=== PATIENT | female | born 1980 | race Caucasian/White ===

== ENCOUNTER 2019-05-29 20:00 | Inpatient (IN) | payer OTHER ==
[2019-05-29 21:51] LABS: BASO % 0.5 % (0-2.0); EOS % 0.9 % (0-4.5); HEMATOCRIT 34.4 % (32.4-45.2); HEMOGLOBIN 11.2 GM/dL (10.7-15.3); LYMPH % 24.6 % (8-40); MCH 29.4 pg (25.7-33.7); MCHC 32.5 g/dl (32.0-36.0); MEAN CELL VOLUME 90.4 fl (80-96); MONO % 8.9 % (3.8-10.2); NEUT % 65.1 % (42.8-82.8); PLATELET COUNT 170 K/MM3 (134-434); RBC 3.81 M/mm3 (3.60-5.2); RDW 13.1 % (11.6-15.6); WHITE BLOOD COUNT 7.7 K/mm3 (4.0-10.0)
--- NOTE | 2019-05-29 21:53 | HP ---
Past Medical History - Primary Care Physician PCP:: Julio Strange - Admission Chief Complaint: 38yo P0 female with at EGA 40w2d admitted for labor indx. 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: Alzheimer's, CVA, Dementia, Migraine, Multiple Sclerosis, Peripheral Neuropathy, Parkinson's, Seizure, Syncope, TIA, Vertigo, Other Cardiovascular: No: AFIB, Aneurysm, Aortic Insufficiency, Aortic Stenosis, CAD, CHF, Deep Vein Thrombosis, HTN, Hyperlipdemia, ME, Mitral Insufficiency, Mitral Stenosis, Murmur, Pulmonary Hypertension, Other Pulmonary: No: Asthma, Bronchitis, Cancer, COPD, O2 Dependent, Pneumonia, Previously Intubated, Pulmonary Embolus, Pulmonary Fibrosis, Sleep Apnea, Other Gastrointestinal: No: Ascites, Cancer, Constipation, Crohn's Disease, Diverticulitis, Diverticulosis, Esophageal Varices, Gastritis, GERD, GI Bleed, Hemorrhoids, Hiatal Hernia, Inflamatory Bowel Disease, Irritable Bowel Disease, Pancreatitis, Peptic Ulcer Disease, Ulcerative Colitis, Other Hepatobiliary: No: Cirrhosis, Cholelithiasis, Cholecystitis, Choledocholithiasis , Hepatitis A, Hepatitis B, Hepatitis C, Other Renal/: No: Renal Failure, Renal Inusuff, BPH, Cancer, Hematuria, Hemodialysis , Neurogenic Bladder, Renal Calculi, UTI, Other Reproductive: Yes: Fibroids (small) ...: 4 ...Para: 0 ...Term: 0 ...: 0 ...Spon : 3 ...Induced : 0 ...Multiple Gestation: 0 ... Weeks Gestation by Dates: 40.2 ...EDC by Sono: 05/27/19 Additional OB History: SAB x 3 Heme/Onc: No: Anemia, B12 Deficiency, Bleeding Disorder, Cancer, Current Chemotherapy, Current Radiation Therapy, Hemochromatosis, Hypercoaguable State, Myeloproliferative Synd, Sickle Cell Disease, Sickle Cell Trait, Thrombocytopenia, Other Infectious Disease: No: AIDS, C-Diff, Herpes Zoster, HIV, MRSA, STD's, Tuberculosis, VREF, Other Psych: No: Addictions, Anxiety, Bipolar, Depression, Panic, Psychosis, Schizophrenia, Other Musculoskeletal: No: Bursitis, Chronic low back pain, Hemiparesis, Hemiplegia, Osteoarthritis, Paraplegia, Other Rheumatology: No: Fibromyalgia, Gout, Lupus, Rheumatoid Arthritis, Sarcoidosis, Vasculitis, Other ENT: No: Allergic Rhinitis, Sinusitis, Other Endocrine: No: Shade's Disease, Webster's Disease, Diabetes Insipidus, Diabetes Mellitus, Hyperparathyroidism, Hyperthyroidism, Hypothyroidism, Osteopenia, SIADH, Other Dermatology: No: Basal Cell, Cellulitis, Eczema, Melanoma, Psoriasis, Squamous Cell, Other - Past Surgical History Past Surgical History: Yes: None Hx Myomectomy: No Hx Transabdominal Cerclage: No Additional Surgical History: D&C 1, breast augmentation - Smoking History Have you smoked in the past 12 months: No - Alcohol/Substance Use Hx Alcohol Use: No History of Substance Use: reports: None - Social History Usual Living Arrangement: Yes: With Spouse ADL: Independent 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 History of Recent Travel: No Home Medications - Allergies Allergies/Adverse Reactions: Allergies Allergy/AdvReac Type Severity Reaction Status Date / Time Penicillins Allergy Intermediate Difficulty Verified 05/29/19 21:29 Breathing aspirin Allergy Mild Hives Verified 05/29/19 21:30 - Home Medications Home Medications: Ambulatory Orders 19 Tablet 1 tab PO DAILY 05/29/19 Family Disease History - Family Disease History Family History: Unremarkable Review of Systems - Review of Systems Constitutional: reports: No Symptoms Eyes: reports: No Symptoms HENT: reports: No Symptoms Neck: reports: No Symptoms Cardiovascular: reports: No Symptoms Respiratory: reports: No Symptoms Gastrointestinal: reports: No Symptoms Genitourinary: reports: No Symptoms Breasts: reports: No Symptoms Reported Musculoskeletal: reports: No Symptoms Integumentary: reports: No Symptoms Neurological: reports: No Symptoms Endocrine: reports: No Symptoms Hematology/Lymphatic: reports: No Symptoms Psychiatric: reports: No Symptoms Pain Intensity: 0 Physical Exam - Maternity Constitutional: Yes: Well Nourished, No Distress, Calm Eyes: Yes: WNL, Conjunctiva Clear HENT: Yes: WNL, Atraumatic, Normocephalic Neck: Yes: WNL, Supple, Trachea Midline Cardiovascular: Yes: WNL, Regular Rate and Rhythm Lungs: Clear to auscultation, Normal air movement Breast(s): Yes: WNL - Abdominal Exam/OB Fundal Height: 40 Number of Fetuses: Single Presentation: Vertex Contractions: No Heart Rate (range): 120 Heart Rate Location: Midline Category: I Accelerations: Uniform Decelerations: None - Vaginal Exam/OB Vaginal Bleediing: No Speculum Exam: No Dilatation (cm): 0 Effacement (%): 0 Amniotic Membrane Status: Intact Presentation: Vertex/Position Station: -4 (Gynecoid pelvimetry, EFW ~3300 gm by Leoplold maneuvers.) - Physical Exam Musculoskeletal: Yes: WNL Extremities: Yes: WNL Edema: No Integumentary: Yes: WNL Deep Tendon Reflex Grade: Normal +2 ...Motor Strength: WNL Psychiatric: Yes: WNL, Alert, Oriented Hemorrhage Risk Assessment - Risk Factors Medium Risk Factors: Yes: None High Risk Factors: Yes: None Risk Score: 1 Risk Level: Medium Risk Imaging - Results Ultrasound: Report Reviewed Assessment/Plan 38yo P0 with at EGA 40w2d admitted for labor induction. Pt is not in labor. Fetus with Category I tracing. Adequate gynecoid pelvimetry on exam. We had long discussion re: risks, benefits, and alternatives of labor induction. I explained the options of expectant management awaiting spontaneous labor, induction of labor, and elective section. The risks of uterine tachysystole, distress, uterine rupture, need for emergency C/S, hemorrhage, infection, scarring, etc. were discussed. We also discussed the risks of meconium aspiration, shoulder dystocia, and anesthesia options. The pt requested to proceed with induction. We discussed the alternative methods of induction with Cervidil, Cytotec, Folley ballon, and pitocin. The pt prefers Cervidil followed by pitocin, if needed.
[2019-05-29 21:57] LABS: INR 0.9 (0.83-1.09); PROTHROMBIN TIME (PATIENT) 10.6 SEC (9.7-13.0)
[2019-05-29 22:00] LABS: ACTIVATED PTT 25.2 SECONDS (25.2-36.5)
[2019-05-29] MEDS ORDERED: DINOPROSTONE 10 MG VAGINAL SUPPOSITORY VG ONE (22:06)
[2019-05-29 22:10] LABS: BLOOD UREA NITROGEN 12.6 mg/dL (7-18); CREATININE 0.9 mg/dL (0.55-1.3); POTASSIUM 4.2 mmol/L (3.5-5.1); URIC ACID 5.7 mg/dL (2.6-7.2)
[2019-05-29 22:14] LABS: RETICULOCYTES 1.69 % (0.5-1.5)
[2019-05-29] MEDS: DEXTROSE 5%-LACTATED RINGERS 1,000 ML IV SCH (23:00)
[2019-05-30] MEDS: CLINDAMYCIN 900 MG PREMIX IVPB 900 MG/50 ML BAG IVPB SCH ×2 (01:00→09:30)
[2019-05-30] MEDS ORDERED: CLINDAMYCIN PHOSPHATE 600 MG/4 ML VIAL ONE ×2 (01:15)
[2019-05-30] MEDS ORDERED: BUTORPHANOL TARTRATE 1 MG/ML VIAL ONE ×2 (03:23)
[2019-05-30] MEDS ORDERED: PROMETHAZINE HCL 25 MG/1 ML VIAL ONE (03:24)
[2019-05-30] MEDS: DEXTROSE 5%-LACTATED RINGERS 1,000 ML IV SCH (05:47)
--- NOTE | 2019-05-30 08:26 | PN ---
Ante-Partal Exam - Subjective Subjective: Pt is comfortable now. The contractions had spread out. Vital Signs: Vital Signs Temperature 97.6 F 05/30/19 06:00 Pulse Rate 70 05/30/19 06:00 Respiratory Rate 18 05/30/19 06:00 Blood Pressure 125/75 05/30/19 06:00 O2 Sat by Pulse Oximetry (%) Bleeding: No Headache: No Visual changes: No Right upper quadrant pain: No Pain (scale 1-10): 2 - Contractions Contractions: Yes Regularity: Irregular Intensity: Mild Monitor Mode: External - Exam during Labor Heart Rate: 120 Variability: Moderate Heart Rate Location: Midline Category: I Monitor Accelerations: Absent Monitor Decelerations: None Exam: Vaginal Dilatation (cm): 0 Effacement (%): 50 Amniotic Membrane Status: Intact Station: -3 - Intrapartum Hemorrhage Risk Medium Risk Factors: None High Risk Factors: None Risk Score: 0 Risk Level: Low Risk - Assessment/Plan Assessment/Plan: 38yo P0 with IVF at 40w3d undergoing labor indx. Pt is s/p Cervidil and is not in labor. Pt requested to eat and shower. Fetus with category I tracing and does not require intervention. Plan to start pitocin when she is ready.
[2019-05-30] MEDS ORDERED: PROMETHAZINE HCL 25 MG/1 ML VIAL IVPB ONE (08:43)
[2019-05-30] MEDS ORDERED: BUTORPHANOL TARTRATE 1 MG/ML VIAL IVPB ONE (08:43)
[2019-05-30] MEDS ORDERED: OXYTOCIN 30 UNITS in 0.9% NS 30 UNIT/500 ML INFUS.BAG IVPB SCH (08:45)
[2019-05-30] MEDS ORDERED: OXYTOCIN 30 UNITS in 0.9% NS 30 UNIT/500 ML INFUS.BAG IVPB ONE (09:16)
[2019-05-30] MEDS ORDERED: CITRIC ACID/SODIUM CITRATE 30 ML UNIT-DOSE CUP PO ONE (09:54)
[2019-05-30] MEDS ORDERED: ELECTROLYTE-148 SOLN 1,000 ML IV SCH (10:00)
[2019-05-30] MEDS ORDERED: OXYTOCIN 20 UNITS in 0.9% NS 40 UNIT/2,000 ML INFUS.BAG IV ONE (10:32)
[2019-05-30] MEDS ORDERED: morphine SULFATE/PF 0.5 MG/ML (2cc Syringe - QUVA) ONE (11:12)
[2019-05-30] MEDS ORDERED: PHENYLEPHRINE HCL 10 MG/1 ML SINGLE DOSE VIAL ONE (11:13)
--- NOTE | 2019-05-30 11:14 | PN ---
Progress Note (short form) - Note Progress Note: cx closed 50 vx -3, dimpling of cx noted , patient has declined pitocin induction , requesting to have c/s, risks discussed, fully aware of all risks
[2019-05-30] MEDS ORDERED: SUCCINYLCHOLINE CHLORIDE 200 MG/10 ML SYRINGE ONE (11:18)
[2019-05-30] MEDS ORDERED: PROPOFOL 20 ML ONE (11:18)
[2019-05-30] MEDS ORDERED: ePHEDrine SULFATE 50 MG/1 ML AMPULE ONE (11:46)
[2019-05-30] MEDS ORDERED: OXYTOCIN 10 UNITS/ML VIAL ONE (11:52)
[2019-05-30] MEDS ORDERED: KETOROLAC TROMETHAMINE 30 MG/1 ML VIAL ONE ×2 (11:58→12:27)
[2019-05-30] MEDS ORDERED: diphenhydrAMINE HCL 25 MG CAPSULE (FP) PO PRN (12:40)
[2019-05-30] MEDS ORDERED: WITCH HAZEL 50% (TUCKS) 40 PAD/JAR PAD TP PRN (12:40)
[2019-05-30] MEDS ORDERED: oxyCODONE HCL 5 MG TABLET PO PRN (12:40)
[2019-05-30] MEDS ORDERED: BENZOCAINE 20% 57 GM BOTTLE TP PRN (12:40)
[2019-05-30] MEDS ORDERED: BENZOCAINE 28 GM HEMORRHOIDAL OINTMENT PR PRN (12:40)
[2019-05-30] MEDS ORDERED: METHYLERGONOVINE MALEATE 0.2 MG/1 ML AMP IM PRN (12:40)
[2019-05-30] MEDS ORDERED: DEXTROSE 5%-LACTATED RINGERS 1,000 ML IV SCH (12:45)
[2019-05-30] MEDS ORDERED: OXYTOCIN 20 UNITS in 0.9% NS 20 UNIT/1,000 ML INFUS.BAG IV SCH (12:45)
--- NOTE | 2019-05-30 12:45 | OP ---
Operative Note - Note: Operative Date: 05/30/19 Pre-Operative Diagnosis: 40.3 weeks, failed induction Operation: primary LST c/s Findings: live baby boy 06/05 Surgeon: Darian Wadsworth Lending Activities Supervisor: Galileo Dumont Anesthesiologist/BYPRODUCT ENGINEER: Mini Molina Anesthesia: Spinal Specimens Removed: placenta Estimated Blood Loss (mls): 500 Operative Report Dictated: Yes
[2019-05-30] MEDS ORDERED: IBUPROFEN 600 MG TABLET (FP) PO PRN (12:53)
[2019-05-30] MEDS ORDERED: ONDANSETRON 4 MG/2 ML VIAL IVPUSH PRN (12:53)
--- NOTE | 2019-05-30 13:23 | PN ---
Progress Note (short form) - Note Progress Note: I asisted Dr. Wadsworth with primary c/section through out its entirety.
--- NOTE | 2019-05-30 13:27 | OP ---
DATE OF OPERATION: 05/30/2019 PREOPERATIVE DIAGNOSES: , post date, failed induction, advanced maternal age, in vitro fertilization . POSTOPERATIVE DIAGNOSES: , post date, failed induction, advanced maternal age, in vitro fertilization . PROCEDURE: Primary low-segment transverse section. SURGEON: Darian Wadsworth MD CERTIFIED MASSAGE THERAPIST: Galileo Dumont MD ANESTHESIA: Spinal. ANESTHESIOLOGIST: Mini Molina MD ESTIMATED BLOOD LOSS: 500 mL. FINDINGS: A live baby boy, Apgars 9 and 9, LOT position and cord around the neck and arm. OPERATION: Patient was taken to operating room. Adequate spinal anesthesia. Abdomen and perineum was prepped and draped. Pfannenstiel abdominal skin incision was made. Incision extended to the subcutaneous fat and fascia. Fascia was incised transversely and then fascia was from rectus muscle. Peritoneum was grasped with 2 Ginette clamps and entered. Lower uterine segment was identified and uterovesical fold of peritoneum established. Bladder was pushed down. A low transverse uterine incision was made, incision extended laterally with bandage scissors. Head delivered from LOT position, nasopharynx was suctioned. There was a cord around the neck x1, reduced, cord around the arm also. Anterior and posterior shoulder delivered without any difficulty. Then live baby boy was delivered. Placenta was delivered manually. Uterine cavity was cleaned of all remaining tissue. Uterine incision was closed in 2 layers, 1st layer with 0 Biosyn continuous suture, the 2nd layer with 0 Biosyn imbricating the 1st layer. Bladder flap was closed with 0 Biosyn continuous suture. Both tubes and ovaries were checked, were normal, no active bleeding was seen. All the lap pad, sponge count, and instrument count were correct. Then peritoneum was closed with 0 Biosyn continuous suture. Muscles were brought together with interrupted suture of 0 Biosyn. Fascia was closed with 0 Biosyn continuous suture, subcutaneous fat with interrupted suture of 0 Biosyn, and the skin was closed with 3-0 Vicryl subcuticular continuous suture. Patient tolerated procedure well, left the OR in good condition. Pat [id number]
[2019-05-30] MEDS: IBUPROFEN 800 MG/8 ML IJ IVPB PRN ×2 (14:35→20:35)
[2019-05-30] MEDS: CLINDAMYCIN 600MG PREMIX IVPB 600 MG/50 ML BAG IVPB SCH (17:26)
[2019-05-31] MEDS: CLINDAMYCIN 600MG PREMIX IVPB 600 MG/50 ML BAG IVPB SCH (00:10)
[2019-05-31] MEDS: IBUPROFEN 600 MG TABLET (FP) PO PRN ×3 (07:55→18:45)
[2019-05-31 07:56] LABS: BASO % 0.4 % (0-2.0); EOS % 1.8 % (0-4.5); HEMOGLOBIN 9.4 GM/dL (10.7-15.3); LYMPH % 27.1 % (8-40); MCH 29.7 pg (25.7-33.7); MCHC 32.5 g/dl (32.0-36.0); MEAN CELL VOLUME 91.2 fl (80-96); MEAN PLT VOLUME 10.8 fl (7.5-11.1); NEUT % 61.7 % (42.8-82.8); PLATELET COUNT 132 K/MM3 (134-434); RBC 3.18 M/mm3 (3.60-5.2); WHITE BLOOD COUNT 6.1 K/mm3 (4.0-10.0)
[2019-05-31] MEDS: oxyCODONE HCL 5 MG TABLET PO PRN ×3 (07:56→18:46)
[2019-05-31] MEDS: ENOXAPARIN NA (PORCINE) 40 MG/0.4 ML DISP.SYRIN SQ SCH (09:26)
--- NOTE | 2019-05-31 10:47 | PN ---
Progress Note (short form) - Note Progress Note: Post op day#1.S/P C Section under spinal with duramorph uneventful.Patient stable and has little pain for which she is on medication.No any anesthesia related problem.Patient Dc from the anesthesia care.
[2019-05-31] MEDS ORDERED: BISACODYL 10 MG SUPP.RECT PR PRN (12:40)
--- NOTE | 2019-05-31 15:35 | PN ---
Post Progress Note - Subjective Subjective: Patient without acute complaints. Reports tolerating oral intake without nausea or vomiting. Ambulating without dizziness. Denies fevers or chills. Pain well controlled with oral pain medication. Pumping/breast feeding without issue. No flatus, no BM yet. Post Day: 1 Type of Delivery: Primary C/S Vital Signs: Vital Signs Temperature 98.3 F 05/31/19 09:00 Pulse Rate 76 05/31/19 09:00 Respiratory Rate 18 05/31/19 12:00 Blood Pressure 116/72 05/31/19 09:00 O2 Sat by Pulse Oximetry (%) 98 05/30/19 14:00 Breast Exam: Yes: Soft Uterus: Yes: Fundus Firm, Fundus below umbilicus, Non-tender Incision: Yes: Dressing dry and intact Abdomen/GI: Yes: Abdomen soft, Tolerating PO Lochia: Yes: Rubra Lochia, amount: Small Extremities: Yes: Calves non-tender Perineum: Yes: Intact Activity: Ambulating - Labs Labs: CBC WBC 6.1 K/mm3 (4.0-10.0) 05/31/19 06:55 RBC 3.18 M/mm3 (3.60-5.2) L 05/31/19 06:55 Hgb 9.4 GM/dL (10.7-15.3) L 05/31/19 06:55 Hct 29.0 % (32.4-45.2) L D 05/31/19 06:55 MCV 91.2 fl (80-96) 05/31/19 06:55 MCH 29.7 pg (25.7-33.7) 05/31/19 06:55 MCHC 32.5 g/dl (32.0-36.0) 05/31/19 06:55 RDW 13.0 % (11.6-15.6) 05/31/19 06:55 Plt Count 132 K/MM3 (134-434) L D 05/31/19 06:55 MPV 10.8 fl (7.5-11.1) 05/31/19 06:55 Absolute Neuts (auto) 3.8 K/mm3 (1.5-8.0) 05/31/19 06:55 Neutrophils % 61.7 % (42.8-82.8) 05/31/19 06:55 Lymphocytes % 27.1 % (8-40) 05/31/19 06:55 Monocytes % 9.0 % (3.8-10.2) 05/31/19 06:55 Eosinophils % 1.8 % (0-4.5) D 05/31/19 06:55 Basophils % 0.4 % (0-2.0) 05/31/19 06:55 Nucleated RBC % 0 % (0-0) 05/31/19 06:55 Retic Count 1.69 % (0.5-1.5) H 05/29/19 21:24 Haptoglobin 163 mg/dL (34-200) 05/29/19 21:24 Assessment/Plan 38yo P1 s/p primary LT C/S, doing well stable, afebrile. care instructions reviewed. Continue routine postop care. Ambulation encouraged.
[2019-06-01] MEDS: IBUPROFEN 600 MG TABLET (FP) PO PRN ×3 (02:51→18:44)
[2019-06-01] MEDS: SIMETHICONE 80 MG TAB.CHEW (FP) PO PRN ×3 (02:51→18:44)
[2019-06-01] MEDS: oxyCODONE HCL 5 MG TABLET PO PRN ×3 (02:51→18:45)
--- NOTE | 2019-06-01 07:39 | PN ---
Post Progress Note - Subjective Subjective: Patient without acute complaints. Reports tolerating oral intake without nausea or vomiting. Ambulating without dizziness. Denies fevers or chills. Pain well controlled with oral pain medication. without difficulty. Passing flatus. Post Day: 2 Type of Delivery: Primary C/S Vital Signs: Vital Signs Temperature 97.2 F L 05/31/19 21:27 Pulse Rate 80 05/31/19 21:27 Respiratory Rate 20 05/31/19 21:27 Blood Pressure 125/71 05/31/19 21:27 O2 Sat by Pulse Oximetry (%) 98 05/30/19 14:00 Breast Exam: Yes: Soft Uterus: Yes: Fundus Firm, Fundus below umbilicus Incision: Yes: Sutures intact. No: Redness, Oozing Abdomen/GI: Yes: Abdomen soft, Abdominal Distention (mild soft), Tender (mild incisional), Passing flatus, Tolerating PO Lochia: Yes: Rubra Lochia, amount: Small Extremities: Yes: Calves non-tender, Edema (trace) Activity: Ambulating - Labs Labs: CBC WBC 6.1 K/mm3 (4.0-10.0) 05/31/19 06:55 RBC 3.18 M/mm3 (3.60-5.2) L 05/31/19 06:55 Hgb 9.4 GM/dL (10.7-15.3) L 05/31/19 06:55 Hct 29.0 % (32.4-45.2) L D 05/31/19 06:55 MCV 91.2 fl (80-96) 05/31/19 06:55 MCH 29.7 pg (25.7-33.7) 05/31/19 06:55 MCHC 32.5 g/dl (32.0-36.0) 05/31/19 06:55 RDW 13.0 % (11.6-15.6) 05/31/19 06:55 Plt Count 132 K/MM3 (134-434) L D 05/31/19 06:55 MPV 10.8 fl (7.5-11.1) 05/31/19 06:55 Absolute Neuts (auto) 3.8 K/mm3 (1.5-8.0) 05/31/19 06:55 Neutrophils % 61.7 % (42.8-82.8) 05/31/19 06:55 Lymphocytes % 27.1 % (8-40) 05/31/19 06:55 Monocytes % 9.0 % (3.8-10.2) 05/31/19 06:55 Eosinophils % 1.8 % (0-4.5) D 05/31/19 06:55 Basophils % 0.4 % (0-2.0) 05/31/19 06:55 Nucleated RBC % 0 % (0-0) 05/31/19 06:55 Retic Count 1.69 % (0.5-1.5) H 05/29/19 21:24 Haptoglobin 163 mg/dL (34-200) 05/29/19 21:24 Assessment/Plan 38 yo POD # 2 s/p primary CD, afebrile, vital signs stable, mild asymptomatic anemia, doing well 1. Continue routine postoperative care. 2. Encourage ambulation and incentive spirometer use 3. Continue oral pain medication 4. Anticipate discharge home postoperative day #3 or #4
[2019-06-01] MEDS: ENOXAPARIN NA (PORCINE) 40 MG/0.4 ML DISP.SYRIN SQ SCH (09:41)
[2019-06-01] MEDS ORDERED: PNEUMOC 13-VAL CONJ-DIP CRM/PF 0.5 ML DISP.SYRIN IM ONE (10:00)
[2019-06-01] MEDS ORDERED: SENNOSIDES/DOCUSATE COMBO (SENNA PLUS) TABLET (UD) PO PRN (22:00)
--- NOTE | 2019-06-02 07:53 | DS ---
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: Vital Signs Temperature 99.3 F 06/01/19 22:00 Pulse Rate 92 H 06/01/19 22:00 Respiratory Rate 20 06/01/19 22:00 Blood Pressure 137/89 06/01/19 22:00 O2 Sat by Pulse Oximetry (%) 98 05/30/19 14:00 Constitutional: Yes: Well Nourished, No Distress, Calm Eyes: Yes: WNL, Conjunctiva Clear, EOM Intact HENT: Yes: WNL, Atraumatic, Normocephalic Neck: Yes: WNL, Supple, Trachea Midline Cardiovascular: Yes: WNL, Regular Rate and Rhythm Respiratory: Yes: WNL, Regular, CTA Bilaterally Gastrointestinal: Yes: WNL ...Rectal Exam: Yes: WNL Renal/: Yes: WNL ....Post : Yes: Uterus firm, Uterus non-tender, Slight lochia rubra Breast(s): Yes: WNL Musculoskeletal: Yes: WNL Extremities: Yes: WNL Edema: No Integumentary: Yes: WNL Wound/Incision: Yes: Clean/Dry, Well Approximated, Sutures Intact Neurological: Yes: WNL, Alert, Oriented ...Motor Strength: WNL Psychiatric: Yes: WNL, Alert, Oriented Labs: CBC, BMP 05/31/19 06:55 05/29/19 21:24 Delivery - Delivery Section: Primary, Low Flap Transverse (no complication) Type of Anesthesia: Spinal Episiotomy/Laceration: None EBL (cc): 500 Delivery, Single - Stages of Labor Date 1st Stage Initiatied: 05/30/19 Time 1st Stage Initiated: 02:00 Date of Delivery: 05/30/19 Time of Delivery: 11:57 Time Placenta Delivered: 11:58 Placenta: Yes: Expressed - Condition of Designated Broker/Filtrose Crusher Present: Yes Name: Ronald Staton Gender: Male Weight: 7 lb 10 oz Position: Left, OT Total Hours ROM (Hrs/Mins): 0/2 - 1 Minute Total Score: 9 5 Minutes Total Score: 9 - [place] Feeding Plan Initial Plan: Elected not to breastfeed exclusively throughout hospitalization Discharge Summary Reason For Visit: LABOR ADMIT Procedures: Principal: primary LST c/s Condition: Good - Instructions Diet, Activity, Other Instructions: if pain, heavy vaginal bleeding, fever call md, follow up office 1 week regular diet Referrals: Darian Wadsworth MD [Staff Physician] - Disposition: HOME - Home Medications Comprehensive Discharge Medication List: Ambulatory Orders 19 Tablet 1 tab PO DAILY 05/29/19 Ibuprofen [Motrin -] 600 mg PO QID #28 tablet 06/01/19
[2019-06-02 08:32] LABS: BASO % 0.7 % (0-2.0); EOS % 1.9 % (0-4.5); HEMATOCRIT 28.5 % (32.4-45.2); HEMOGLOBIN 9.2 GM/dL (10.7-15.3); LYMPH % 18.8 % (8-40); MCH 29.4 pg (25.7-33.7); MCHC 32.2 g/dl (32.0-36.0); MEAN CELL VOLUME 91.2 fl (80-96); MEAN PLT VOLUME 10.5 fl (7.5-11.1); NEUT % 67.6 % (42.8-82.8); PLATELET COUNT 175 K/MM3 (134-434); RBC 3.13 M/mm3 (3.60-5.2); RDW 13.2 % (11.6-15.6); WHITE BLOOD COUNT 6.5 K/mm3 (4.0-10.0)
[2019-06-02] MEDS: IBUPROFEN 600 MG TABLET (FP) PO PRN (08:56)
[2019-06-02] MEDS: ENOXAPARIN NA (PORCINE) 40 MG/0.4 ML DISP.SYRIN SQ SCH (10:24)
[2019-06-02 11:09] VITALS: BP 122/77; PULSE 80; TEMP 98.7
--- NOTE | 2019-06-02 18:08 | PATH ---
Surgical Pathology Report Patient Name: MARTINA LOWE Med. Rec. 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 Specimen(s) Received PLACENTA Clinical History 40.3 weeks, IVF, failed induction Final Diagnosis PLACENTA, SECTION: 563 G THIRD TRIMESTER PLACENTA WITH TRIVASCULAR UMBILICAL CORD AND UNREMARKABLE PLACENTAL MEMBRANES. Electronically Signed Mira Zapata M.D. Gross Description The specimen is received fresh labeled placenta and is a 563 gram, 15 x 15 x 2 cm. placenta with attached membranes and umbilical cord. The attached membranes are clear and translucent and insert marginally. The umbilical cord measures 23 cm. in length and averages 1.3 cm. in diameter. The cord inserts eccentrically, 3 cm. to the nearest margin. No true knots or strictures are identified. Cut surface of the umbilical cord reveals 3 vessels. The surface is osborne-blue with minimal fibrin deposition and appropriate caliber vessels. The maternal surface is red-brown with focal defects. Sectioning reveals red-brown, spongy parenchyma. No lesions are identified. Adjunct Political Science Instructor sections are submitted in three cassettes as follows: 1- membrane rolls and umbilical cord; 2-3- full thickness sections of placenta. MLSZ/06/01/2019 sanml/06/01/2019
== END 2019-06-02 12:40 | disposition home or self-care (01) | DRG 540 ==
LOC: JLDR 20:00 → J3W 05-30 14:15
PROVIDERS: ADMIT Obstetrics & Gynecology; ATTEND Obstetrics & Gynecology
PROC: 3E0P7VZ Introduction of Hormone into Female Reproductive, Via Natural or Artificial Opening (ICD-10-PCS; 2019-05-29)
PROC: 10D00Z1 Extraction of Products of Conception, Low, Open Approach (ICD-10-PCS; principal; 2019-05-30)
DX: O48.0 Post-term pregnancy (principal); Z3A.40 40 weeks gestation of pregnancy; O61.0 Failed medical induction of labor; Z22.330 Carrier of Group B streptococcus; Z37.0 Single live birth
CPT/HCPCS: 36415; 36600; 80048; 82803; 82977; 83010; 84450; 84460; 84550; 85025; 85032; 85044; 85610; 85730; 86593; 86850; 86900; 86901; 87389; 88307-TC